=== PATIENT | male | born 1995 | race Caucasian/White ===

== ENCOUNTER 2018-02-11 14:05 | Emergency (ER) | payer OTHER ==
[2018-02-11 14:17] VITALS: BP 157/98; TEMP 98.8; O2SAT 98
[2018-02-11] MEDS ORDERED: NEOMYCIN-BACITRACIN-POLYMYXIN 0.9 GM UD TOP ONE (14:19)
[2018-02-11] MEDS ORDERED: TETANUS,DIPHTHERIA,PERTUSSIS 1 EA SYG IM ONE (14:20)
--- NOTE | 2018-02-11 14:22 | ED.PDOC ---
History of Present Illness - General Chief Complaint: Upper Extremity Injury Stated Complaint: puncture wound to left wristi Time Seen by Provider: 02/11/18 14:20 Source: patient Exam Limitations: no limitations - History of Present Illness Initial Comments: patient comes as a with a puncture wound to his right wrist from a piece of barbed wire. patient has type 1 diabetes and just wanted to make sure the wound is okay. Also, and had swelling distal to the puncture wound immediately after. He has no fever, chills, or purulence. He has a history of hypertension but not currently on any medication. Medication he takes is insulin and he does not take [id number] ibuprofen or aspirin. Patient is unsure when his last tetanus shot was Occurred: just prior to arrival Pain - Upper Extremity: mild: Wrist, right Method of Injury: other - see HPI Improving Factors: nothing Worsening Factors: nothing Allergies/Adverse Reactions: Allergies NO KNOWN ALLERGY Allergy (Verified 09/16/14 22:58) Home Medications: Ambulatory Orders Insulin Aspart [Novolog] 1 unit SC AC PRN 06/05/14 Review of Systems - Review of Systems Constitutional: States: no symptoms reported EENTM: States: no symptoms reported Respiratory: States: no symptoms reported Cardiology: States: no symptoms reported Gastrointestinal/Abdominal: States: no symptoms reported Skin: States: see HPI Past Medical History (General) - Patient Medical History Hx Seizures: No Hx Stroke: No Hx Dementia: No Hx Asthma: No Hx of COPD: No Hx Cardiac Disorders: No Hx Congestive Heart Failure: No Hx Pacemaker: No Hx Hypertension: Yes Hx Thyroid Disease: No Hx Diabetes: Yes - type 1 Hx Gastroesophageal Reflux: No Hx Renal Disease: No Hx Cancer: No Hx of HIV: No Hx Hepatitis C: No Hx MRSA: No - Vaccination History Hx Tetanus, Diphtheria Vaccination: - unknown Hx Influenza Vaccination: No Hx Pneumococcal Vaccination: No - Social History Hx Tobacco Use: No Hx Chewing Tobacco Use: No Hx Alcohol Use: No Hx Substance Use: No Hx Substance Use Treatment: No Hx Depression: No Hx Physical Abuse: No Hx Emotional Abuse: No Hx Suspected Abuse: No - Female History Patient : No Family Medical History - Family History Mother Family History: No Known Living Status: Still Living Physical Exam - Physical Exam General Appearance: Alert, No apparent distress Cardiovascular/Respiratory: regular rate, rhythm, no M/R/G, normal peripheral pulses, normal breath sounds, no respiratory distress Wrist Exam: swelling - small puncture wound with no bleeding, good radial pulse and capillary refill is <2 sec, normal cardiac cath lab technologist and normal strength and sensation Departure - Departure Clinical Impression: Puncture wound Disposition: Discharge to Home or Self Care Condition: Good Departure Forms: ED Discharge - Pt. Copy, Patient Portal Self Enrollment Diet: diabetic diet Home Medications: Ambulatory Orders Insulin Aspart [Novolog] 1 unit SC AC PRN 06/05/14 Additional Instructions: return to ER for temp greater than 100.5, purulence, or redness. Follow up PCP in 3-4 days
== END 2018-02-11 14:40 | disposition home or self-care (01) ==
LOC: ER 14:05
DX: S61.531A Puncture wound without foreign body of right wrist, initial encounter (principal); E10.9 Type 1 diabetes mellitus without complications; I10 Essential (primary) hypertension; Z23 Encounter for immunization; Z79.4 Long term (current) use of insulin; W26.8XXA Contact with other sharp object(s), not elsewhere classified, initial encounter; Y92.9 Unspecified place or not applicable